=== PATIENT | female | born 1950 | race Caucasian/White ===

== ENCOUNTER → 2025-01-05 12:11 | Outpatient (CLI) | payer MEDICARE, SELFPAY ==
--- NOTE | ~2025-01-05 | XR_ITS ---
EXAM/PROCEDURE: XR chest 2V - 01/05/2025 12:30 CDT HISTORY: 74 years old Female with SOB, COUGH X 1 MONTH TECHNIQUE: Two view(s) of the chest. COMPARISON: None available. FINDINGS: LUNGS/ PLEURA: Small airspace opacity in the right lower lobe may represent atelectasis, edema versus pneumonia in appropriate clinical settings. No appreciable pneumothorax or large pleural effusion. HEART/ MEDIASTINUM: Heart appears normal in size. BONES: Degenerative changes. OTHER: Right upper quadrant cholecystectomy clips. IMPRESSION: Small airspace opacity in the right lower lobe may represent atelectasis, edema versus pneumonia in a ppropriate clinical settings. Clinical correlation is recommended. Short-term follow-up chest radiogr aph is recommended after appropriate clinical therapy. Reviewed, dictated and finalized at location A. IMPRESSION: Small airspace opacity in the right lower lobe may represent atelectasis, edema versus pneumonia in appropriate clinical settings. Clinical correlation is rec ommended. Short-term follow-up chest radiograph is recommended after appropriat e clinical therapy.
== END ==
PROVIDERS: PCP Nurse Practitioner Family; Visit Provider Nurse Practitioner Family
DX: R06.02 Shortness of breath (principal); R05.3 Chronic cough
CPT/HCPCS: 71046